=== PATIENT | female | born 1945 | race Caucasian/White ===

== ENCOUNTER 2016-12-23 12:27 | Day surgery (SDC) | payer OTHER, MEDICARE ==
[~2016-12-23 12:27] MED LIST: CELECOXIB200 MG PO; GABAPENTIN300 M1 PO; LEVOTHYROXINE0.05 M2 PO; METHOTREXATE 22.5 MG PO; NATURE'S BLEND F1 MG PO; NUVIGIL150 MG PO; ROPINIROLE4 MG PO
--- NOTE | 2016-12-23 14:13 | Operative Note ---
Colonoscopy ([facility]) Procedure date: 12/23/16 Date of : 45 Procedure:Colonoscopy Colonoscopy Indications: Mrs. Sears is a 71-year-old female who is here for follow-up screening/ surveillance colonoscopy. Her last colonoscopy 13 or 14 years ago with me was normal. She does have some crampy abdominal discomfort and diarrhea when she eats dairy and some ice cream. She reports no rectal bleeding, weight loss, change in her bowel habits or family history of colon cancer. Performing Provider: Elisabet Rangel MD Referrring Provider: Maulik Suarez M.D. Sedation: Fentanyl 200 mg IV/Versed 9 mg IV Procedure: Prior to the procedure, a history and physical exam was performed, and patient medications and allergies were reviewed. The risks and benefits of the procedure and the sedation options and risks were discussed with the patient. All questions were answered and informed consent was obtained. Patient identification and proposed procedure were verified by the physician and the nurse. The patient was placed in a left lateral decubitus position. Throughout the procedure, the patient's blood pressure, pulse, and oxygen saturations were monitored continuously. Findings: On digital rectal examination there was normal rectal tone. There were no external hemorrhoids. The colonoscope was introduced through the anal canal to the rectum and advanced to the cecum. The ileocecal valve and appendiceal orifice were identified. The scope was advanced a short distance into the ileum which appeared grossly normal. The scope was then withdrawn into the colon. The cecum, ascending, transverse, descending, sigmoid and rectum were grossly normal. There were no mucosal abnormalities identified. There was some colonic redundancy/colonic dysmotility. Upon retroflexion within the rectum there were grade 1 internal hemorrhoids. Impressions: 1. Normal colonoscopy with intubation of the terminal ileum 2. Grade 1 internal hemorrhoids Recommendations: Based upon the patient's age, I'm not convinced that she will require any further preventive/surveillance colonoscopy for colorectal cancer. I would encourage fiber/probiotic therapy. Complications: None EBL (ml): 0 at 1413
[2016-12-23 15:45] VITALS: BP 125/69
== END 2016-12-23 15:12 | disposition home or self-care (01) ==
LOC: SDC 12:27
PROVIDERS: Internal Medicine Gastroenterology
PROC: 0DJD8ZZ Inspection of Lower Intestinal Tract, Via Natural or Artificial Opening Endoscopic (ICD-10-PCS; principal; 2016-12-23 13:30)
DX: Z12.11 Encounter for screening for malignant neoplasm of colon (principal); K64.0 First degree hemorrhoids